=== PATIENT | female | born 1995 | race Caucasian/White ===

== ENCOUNTER → 2016-08-26 | Outpatient (CLI) | payer OTHER, MEDICAID ==
--- NOTE | 2016-08-26 12:13 | DX ---
3 Views Right Hand: Clinical Indications: Pain following trauma. 20-year-old female injured her hand one half months ago . There is reported palpable nodule in the mid hand which is indicated by an arrow on 2 of the radiog raphs. Findings: A fracture or other acute osseous abnormality is not seen. The bone alignment is normal. N o radiopaque foreign body is identified. No discrete mammographic abnormality is seen corresponding t o the palpable asymmetry. Impression: The right hand is radiographically negative.
== END ==
LOC: BRMIMAGING 10:26
PROVIDERS: ATTEND Family Medicine
DX: M79.641 Pain in right hand (principal)
CPT/HCPCS: 73130-PO

== ENCOUNTER → 2018-11-27 | Outpatient (CLI) | payer OTHER, MEDICAID | LOC: EMCIMAGING 11:57 | PROVIDERS: ATTEND Family Medicine | DX: M25.572 Pain in left ankle and joints of left foot (principal) | CPT/HCPCS: 73610-PN ==

== ENCOUNTER → 2019-02-06 | Outpatient (CLI) | payer OTHER, MEDICAID | LOC: EMCIMAGING 17:07 ==